=== PATIENT | female | born 1960 | race Caucasian/White ===

== ENCOUNTER → 2018-01-11 13:09 | Outpatient (CLI) | payer OTHER, SELFPAY ==
--- NOTE | 2018-01-11 | DI.MG.S_ITS ---
BILATERAL DIGITAL SCREENING MAMMOGRAM 3D/2D WITH CAD: 01/11/2018 CLINICAL: Routine screening. Family history of breast cancer. Comparison is made to exams dated: 01/08/2017 mammogram, 01/08/2016 mammogram - [facility], and 12/18/2014 mammogram - [facility]. The tissue of both breasts is heterogeneously dense. This may lower the sensitivity of mammography. Current study was also evaluated with a Computer Aided Detection (CAD) system. There are benign calcifications in the left breast. There also is a biopsy clip in the left breast. No significant masses, calcifications, or other findings are seen in either breast. There has been no significant interval change. IMPRESSION: BENIGN There is no mammographic evidence of malignancy. A 1 year screening mammogram is recommended. This exam was interpreted at Station ID: [id number]. NOTE: For mammograms, a report in lay terms will be sent to the patient. Approximately 15% of breast malignancies will not be visualized mammographically. In the management of a palpable breast mass, a negative mammogram must not discourage biopsy of a clinically suspicious lesion. Electronically Signed By: Steve mills/jori:01/11/2018 14:51:03 letter sent: Normal Exam ACR BI-RADS Category 2: Benign Finding(s) 3342F
== END ==
PROVIDERS: PCP Physician Assistant; Visit Provider Physician Assistant
DX: Z12.31 Encounter for screening mammogram for malignant neoplasm of breast (principal); Z80.3 Family history of malignant neoplasm of breast
CPT/HCPCS: 77063; 77067

== ENCOUNTER → 2019-01-13 15:11 | Outpatient (CLI) | payer OTHER, SELFPAY ==
--- NOTE | 2019-01-13 | DI.MG.S_ITS ---
BILATERAL DIGITAL SCREENING MAMMOGRAM 3D/2D WITH CAD: 01/13/2019 CLINICAL: Routine screening. Family history of breast cancer. Comparison is made to exams dated: 01/11/2018 mammogram, 01/08/2017 mammogram, 01/08/2016 mammogram - [facility], and 12/19/2013 mammogram - [facility]. The tissue of both breasts is heterogeneously dense. This may lower the sensitivity of mammography. Current study was also evaluated with a Computer Aided Detection (CAD) system. There is a biopsy clip in the superior lateral left breast with adjacent calcifications that appear stable on multiple prior comparison exams dating back to 12/19/13. There are mole markers on the left breast. No significant masses, calcifications, or other findings are seen in either breast. There has been no significant interval change. IMPRESSION: There is no mammographic evidence of malignancy. A 1 year screening mammogram is recommended. This exam was interpreted at Station ID: [id number]. NOTE: For mammograms, a report in lay terms will be sent to the patient. Approximately 15% of breast malignancies will not be visualized mammographically. In the management of a palpable breast mass, a negative mammogram must not discourage biopsy of a clinically suspicious lesion. Electronically Signed By: Chin Reyez M.D. ecl/:01/14/2019 11:51:32 letter sent: Normal Exam ACR BI-RADS Category 2: Benign Finding(s) 3342F
== END ==
PROVIDERS: PCP Family Medicine; Visit Provider Family Medicine
DX: Z12.31 Encounter for screening mammogram for malignant neoplasm of breast (principal); Z80.3 Family history of malignant neoplasm of breast
CPT/HCPCS: 77063; 77067

== ENCOUNTER → 2020-01-18 16:03 | Outpatient (CLI) | payer OTHER, SELFPAY ==
--- NOTE | 2020-01-18 16:11 | DI.MG.S_ITS ---
Patient Name: ANASTACIA WHITLOCK date: 1960 Sex: F Attending Physician: Michelle Indications: Date: 01/18/2020 16:07 At the request of: BETTY BLAND Procedure: MM screening mammo BI BILATERAL DIGITAL SCREENING MAMMOGRAM 3D/2D WITH CAD: 01/18/2020 CLINICAL: Routine screening. Family history of breast cancer. Comparison is made to exams dated: 01/13/2019 mammogram, 01/11/2018 mammogram, and 01/08/2017 mammogram - [facility]. The tissue of both breasts is heterogeneously dense. This may lower the sensitivity of mammography. Current study was also evaluated with a Computer Aided Detection (CAD) system. There is a benign calcification in both breasts. There also is a biopsy clip in the left breast. No significant masses, calcifications, or other findings are seen in either breast. There has been no significant interval change. IMPRESSION: BENIGN There is no mammographic evidence of malignancy. A 1 year screening mammogram is recommended. This exam was interpreted at Station ID: [id number]. NOTE: For mammograms, a report in lay terms will be sent to the patient. Approximately 15% of breast malignancies will not be visualized mammographically. In the management of a palpable breast mass, a negative mammogram must not discourage biopsy of a clinically suspicious lesion. Electronically Signed By: Antonette farmer/jori:01/18/2020 16:47:24 letter sent: Normal Exam ACR BI-RADS Category 2: Benign Finding(s) 3342F
== END ==
PROVIDERS: PCP Family Medicine; Referring Provider Family Medicine; Visit Provider Family Medicine
DX: Z12.31 Encounter for screening mammogram for malignant neoplasm of breast (principal); Z80.3 Family history of malignant neoplasm of breast
CPT/HCPCS: 77063; 77067

== ENCOUNTER 2020-11-25 06:07 | Emergency (ER) | payer OTHER, SELFPAY ==
[2020-11-25] VITALS (9 sets, daily range): BP systolic 164–198; BP diastolic 73–88; PULSE 59–73; RESP 14–42; TEMP 36.7; O2SAT 99–100; BMI 23.0
--- NOTE | 2020-11-25 06:09 | DI.RAD.S_ITS ---
PROCEDURE: XR CHEST 1V INDICATIONS: Chest pain TECHNIQUE: One view of the chest was acquired. COMPARISON: None. FINDINGS: Surgical changes and devices: None. Lungs and pleura: Lungs are clear. No pleural effusions or pneumothorax. Mediastinum: Mediastinal contours appear normal. Heart size is normal. Bones and chest wall: No suspicious bony lesions. Age-appropriate bony degenerative changes are seen. Overlying soft tissues appear unremarkable. IMPRESSION: Normal portable chest. Note: No significant discrepancy from the preliminary report. Dictated by: Tao Herrera M.D. on 11/25/2020 at 6:29 Approved by: Tao Herrera M.D. on 11/25/2020 at 6:30
--- NOTE | 2020-11-25 06:14 | ED_ITS ---
HPI - General Adult General Chief complaint: Chest Pain Stated complaint: Chest pain Time Seen by Provider: 11/25/20 06:08 History of Present Illness HPI narrative: Patient is a 60-year-old female here for evaluation of left-sided chest discomfort. She states that the symptoms started yesterday and have been off and on since then. And not worse with palpation but does get worse when she moves and when she takes a deep breath. She has had pain similar to this in the past and was told that it was a muscle strain. No coughing. No belly pain. No fevers. Has not tried anything for the symptoms prior to arrival. She has had a history of a cardiac ablation secondary to a fast heart rate. Related Data Previous Rx's Medication Instructions Recorded [estriol/progest] 1 supp VAGINAL QDAY #90 supp 08/05/17 Review of Systems Constitutional Constitutional: Reports system reviewed and no additional complaints, except as documented ENT Ears, Nose, Mouth, and Throat: Reports system reviewed and no additional complaints, except as documented Cardiovascular Cardiovascular: Reports chest pain Respiratory Respiratory: Reports system reviewed and no additional complaints, except as documented Gastrointestinal Gastrointestinal: Denies abdominal pain Musculoskeletal Musculoskeletal: Reports system reviewed and no additional complaints, except as documented Integumentary/Breasts Skin/Breast: Reports system reviewed and no additional complaints, except as documented Hematologic/Lymphatic On Anticoagulants: No Patient History Medical History Tachycardia Surgical History (Updated 09/15/17 @ 06:10 by Conversion Provider) Status post myomectomy Family History Father Age: 88 High cholesterol Mother Age: 86 Hypertension High cholesterol Social History Smoking Status: Never smoker Exam Initial Vital Signs Initial Vital Signs: Vital Signs Blood Pressure 198/88 H 11/25/20 06:13 Const General: cooperative, healthy appearing and comfortable HENMT Head: normal to inspection and normocephalic Chest Chest: No crepitus and No tenderness Resp Effort & Inspection: normal respiratory effort Auscultation: clear to auscultation bilaterally Cardio Rate: regular rate Rhythm: regular rhythm GI Inspection: normal to inspection Palpation: soft Skin General: no rashes or lesions noted Neuro General: patient alert, patient awake and patient oriented x3 Extrem General: normal to inspection Psych Appearance: grossly normal and well kempt Course Orders Ordered: ED Orders 11/25/20 06:09 XR chest 1V Stat Complete Blood Count AUTO DIFF Stat Comprehensive Metabolic Panel Stat Lipase Stat Troponin & CK Cardiac Panel Stat EKG-12 Lead Stat Vital Signs Vital signs: Vital Signs - 8 hr 11/25/20 06:13 11/25/20 06:14 11/25/20 06:15 Temperature 98.1 F Pulse Rate 71 73 Respiratory Rate 26 H 15 Blood Pressure 198/88 H 198/88 H Pulse Oximetry 100 100 11/25/20 06:30 Temperature Pulse Rate 66 Respiratory Rate 42 H Blood Pressure Pulse Oximetry 100 Medical Decision Making Lab Data Lab results reviewed: Yes I reviewed the patient's lab results. Result diagrams: 11/25/20 06:35 11/25/20 06:35 Labs: Lab Results 11/25/20 11/25/20 Range/Units 06:35 06:35 WBC 4.5 (4.5-11.0) X10^3/uL RBC 4.34 (4.0-5.2) X10^6/uL Hgb 13.4 (12.0-16.0) g/dL Hct 40.2 (36-46) % MCV 92.5 (80-100) fL MCH 30.9 (26-34) PG MCHC 33.4 (30-36) % RDW 13.0 (11.6-14.8) % Plt Count 167 (150-400) X10^3/uL Neut % (Auto) 59.1 (50-75) % Lymph % (Auto) 29.3 (25-40) % [place] % (Auto) 8.5 (3-14) % Eos % (Auto) 2.5 (2-4) % Baso % (Auto) 0.6 (0-2) % Neut # (Auto) 2700 (1752-7664) /uL Lymph # (Auto) 1300 (4981-1522) /uL [place] # (Auto) 400 (0-900) /uL Eos # (Auto) 100 (0-450) /uL Baso # (Auto) 0 (0-100) /uL Sodium 140 (137-145) mmol/L Potassium 3.5 (3.4-5.1) mmol/L Chloride 105 (98-107) mmol/L Carbon Dioxide 28 (22-32) mmol/L BUN 17 (7-17) mg/dL Creatinine 0.78 (0.52-1.04) mg/dL Estimated GFR > 60.0 (>60) mL/min BUN/Creatinine Ratio 21.8 (6-22) Glucose 106 (80-110) mg/dL Calcium 9.6 (8.4-10.2) mg/dL Total Bilirubin 1.5 H (0.2-1.3) mg/dL AST 33 (14-36) IU/L ALT 30 (<35) IU/L Alkaline Phosphatase 82 (38-126) U/L Total Creatine Kinase 118 (30-135) U/L Total Protein 7.3 (6.3-8.2) g/dL Albumin 4.2 (3.5-5.0) g/dL Globulin 3.1 (1.7-4.1) g/dL Albumin/Globulin Ratio 1.4 (1.0-2.8) Lipase 111 (23-300) U/L Imaging Data Chest x-ray: Radiologist's Impression: No acute findings ECG Data Attestation: I personally reviewed and interpreted this ECG as follows: Interpretation: Sinus rhythm Ventricular rate is 66 Normal axis Normal QRS Normal QTC No ST T wave changes MDM Narrative Medical decision making narrative: Care turned over to Dr Santiago to follow up and dispo. Discharge Plan Departure Prescriptions: No Action [estriol/progest] 1 supp Vaginal QDAY Qty: 90 RF: 0 Referrals: Austin Martinez MD [Primary Care Provider] -
[2020-11-25 06:40] LABS: Add Manual Diff / Slide Review NO; Basophils Absolute Auto 0 /uL (0-100); Basophils Percent Auto 0.6 % (0-2); Eosinophils Absolute Auto 100 /uL (0-450); Eosinophils Percent Auto 2.5 % (2-4); Hematocrit 40.2 % (36-46); Hemoglobin 13.4 g/dL (12.0-16.0); Lymphocytes Absolute Auto 1300 /uL (1100-4500); Lymphocytes Percent Auto 29.3 % (25-40); Mean Corpuscular HGB Conc 33.4 % (30-36); Mean Corpuscular Hemoglobin 30.9 PG (26-34); Mean Corpuscular Volume 92.5 fL (80-100); Monocytes Absolute Auto 400 /uL (0-900); Monocytes Percent Auto 8.5 % (3-14); Neutrophils Absolute Auto 2700 /uL (1500-7000); Neutrophils Percent Auto 59.1 % (50-75); Platelet Count 167 X10^3/uL (150-400); Red Blood Cell Count 4.34 X10^6/uL (4.0-5.2); White Blood Cell Count 4.5 X10^3/uL (4.5-11.0)
[2020-11-25 06:52] LABS: Alanine Aminotransferase 30 IU/L (<35); Albumin 4.2 g/dL (3.5-5.0); Albumin Globulin Ratio 1.4 (1.0-2.8); Alkaline Phosphatase 82 U/L (38-126); Aspartate Aminotransferase 33 IU/L (14-36); BUN Creatinine Ratio 21.8 (6-22); Bilirubin Total 1.5 mg/dL (0.2-1.3); Blood Urea Nitrogen 17 mg/dL (7-17); Calcium 9.6 mg/dL (8.4-10.2); Carbon Dioxide 28 mmol/L (22-32); Chloride 105 mmol/L (98-107); Creatine Kinase 118 U/L (30-135); Estimated Glomerular Filt Rate > 60.0 mL/min (>60); Globulin 3.1 g/dL (1.7-4.1); Glucose 106 mg/dL (80-110); HEMOLYSIS < 15 (0-50); Lipase 111 U/L (23-300); Potassium 3.5 mmol/L (3.4-5.1); Sodium 140 mmol/L (137-145); Total Protein 7.3 g/dL (6.3-8.2)
[2020-11-25 07:04] LABS: Troponin I < 0.012 ng/mL (0.01-0.034)
[2020-11-25 07:07] LABS: CKMB % Relative Index 1.6 % (1.5-5.0); Creatine Kinase MB 1.87 ng/mL (<2.37)
[2020-11-25] MEDS: KETOROLAC 30 MG/ML VIAL 15 MG IV (07:59)
== END 2020-11-25 08:33 | disposition home or self-care (01) ==
PROVIDERS: Emergency Medicine; Emergency Provider Emergency Medicine; PCP Family Medicine
DX: M94.0 Chondrocostal junction syndrome [Tietze] (principal); R07.9 Chest pain, unspecified
CPT/HCPCS: 36415; 71045; 80053; 82550; 82553; 83690; 84484; 85025; 93005; 93010; 96374; 99284; J1885

== ENCOUNTER → 2021-01-30 09:34 | Outpatient (CLI) | payer OTHER, SELFPAY ==
[2021-01-30 12:09] LABS: COVID19 -Nasal RAPID Negative (Negative)
== END ==
PROVIDERS: PCP Family Medicine; Visit Provider Nurse Practitioner Family
DX: Z20.822 Contact with and (suspected) exposure to COVID-19 (principal)
CPT/HCPCS: 87635

== ENCOUNTER 2021-02-01 12:21 | Day surgery (SDC) | payer OTHER, SELFPAY ==
--- NOTE | 2021-02-01 11:55 | PM.HP.1 ---
History of Present Illness History of Present Illness Date Patient Seen: 02/01/21 Chief complaint: SCREENING COLONOSCOPY Narrative: 60 Years Old Female seen today for consideration of a screening colonoscopy. She had 2 lifetime colonoscopies, records unavailable time of dictation, last in 2014, reportedly normal. There have been no lower GI symptoms suggesting disease such as change in bowel habits, bleeding, abdominal pain or anemia. Her maternal grandfather had colon cancer. Overall health issues have been stable, including no major cardiac events for at least 6 weeks. Past Medical History: Bladder infections Pneumonia BLOOD PRESSURE ELEVATION, W/O DX OF HYPERTENSION HYPERLIPIDEMIA Vitamin B12 deficiency VITAMIN D DEFICIENCY Decreased hearing, bilateral Hx of SVT Shoulder joint pain, left lipooma Past Surgical History: Myomectomy fibroid removal 1993 Right shoulder bone spur 2010 Catherter ablation 2011 Colonoscopy x 2 Rotator cuff, left shoulder Family History: Father: Hyperlipidemia, Macular Degenration Mother: Hyperlipidemia, Hypertension, Deafness? 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 Patient History Medical History Tachycardia Surgical History (Updated 09/15/17 @ 06:10 by Conversion Provider) Status post myomectomy Family & Social History Family History Father Age: 88 High cholesterol Mother Age: 86 Hypertension High cholesterol Tobacco & Substance use: Smoking Status Never smoker Substance Use Type does not use Meds Home Medications and Allergies Allergies Allergy/AdvReac Type Severity Reaction Status Date / Time No Known Drug Allergies Allergy Verified 02/01/21 13:10 Review of Systems Review of Systems Narrative: See HPI. Exam Narrative Exam Narrative: General: well developed, well nourished, in no acute distress, Head: normocephalic and atraumatic, Lungs: normal respiratory effort, clear bilaterally to auscultation, Heart: normal rate and regular rhythm, no murmurs, rubs, gallops, or clicks, Abdomen: abdomen soft and non-tender without masses, organomegaly, or abdominal wall hernias, bowel sounds positive. Skin: intact without suspicious lesions or rashes, Psych: alert and cooperative; normal mood and affect; normal attention span and concentration; cognition, remote and recent memory appear to be intact, Assessment & Plan Assessment & Plan narrative: 1. Family history of colon cancer 2. Screening for of colon cancer Plan for colonoscopy. The nature and character of the procedure as well as anticipated results were discussed. The possibility of not completing the procedure was also discussed. Possible complications including aspiration pneumonia, bleeding, perforation and reaction to medications either for sedation or preparation and missed lesions were discussed. Questions were answered and proceeding to the colonoscopy was elected. Informed consent signed. I sincerely appreciate the referral allowing me to participate in this patient's care. Please contact me with any questions or concerns.
--- NOTE | 2021-02-01 11:56 | PM.OP.ENDO ---
Operative Date/Time/Diagnoses Date of procedure: 02/01/21 Procedure Notes SCOAP/Timeout: 1:47 p.m. Procedure in detail: ENDOSCOPIST: Khushbu García MD Sedation RN: Winter Hollins RN Sedation start time: 1:49 p.m. Sedation end time: 2:13 p.m. PROCEDURE: Colonoscopy INDICATIONS: 1. Family history of colon cancer 2. Screening for colon cancer MEDICATION: Levsin 0.125 mg sublingual, incremental doses of Versed and fentanyl until appropriate level sedation achieved. ASA CLASS: 2 CECAL WITHDRAWAL TIME: 6 minutes COMPLICATIONS: None. EXTENT OF PROCEDURE: Cecum. QUALITY OF PREP: Good with portions of liquid stool. PROCEDURE: Prior to insertion of the colonoscope, a digital rectal examination was accomplished with circumferential palpation of the distal rectal mucosa without significant findings being noted. The high-definition pediatric colonoscope was passed into the rectum in the usual fashion and advanced over to the cecum without difficulty. The ileocecal valve, appendiceal stoma, and medial wall all could be inspected and no abnormalities were seen. ASCENDING COLON: As the colonoscope was withdrawn, care was taken to expose and inspect the haustral folds and no abnormalities were seen. HEPATIC FLEXURE: Normal, no polyps, diverticula or other abnormalities. TRANSVERSE COLON: Normal, no polyps, diverticula or other abnormalities. DESCENDING COLON: Normal, no polyps, diverticula or other abnormalities. SIGMOID COLON: Minor diverticulosis, otherwise, normal, no polyps or other abnormalities. RECTUM: Normal. J maneuver was produced. There was no significant perianal disease. The J maneuver was broken. The remainder of the rectum was inspected and there was no external hemorrhoid disease. The scope was withdrawn. IMPRESSION: 1. Normal colonoscopy 2. Sigmoid diverticulosis PLAN: 1. Repeat colonoscopy in 5 years secondary to family history. The possibility of a missed lesion including a malignancy has been discussed with the patient previously. Potential alarm symptoms have been discussed and should be reported immediately.
[2021-02-01] MEDS: LACTATED RINGERS 1,000 ML 200 ML IV (13:09)
[2021-02-01] MEDS: HYOSCYAMINE 0.125 MG TABLET PO (13:09)
[2021-02-01 13:12] VITALS: BP 145/83; PULSE 71; RESP 16; TEMP 36.9; O2SAT 100; BMI 22.7
[2021-02-01] MEDS: ONDANSETRON 4 MG/2 ML INJ IV (13:49)
[2021-02-01] MEDS: MIDAZOLAM 5 MG/5 ML VIAL IV (14:04)
[2021-02-01] MEDS: fentaNYL 250 MCG/5 ML INJ IV (14:04)
[2021-02-01 14:22] VITALS: BP 130/60; PULSE 58; RESP 13; TEMP 36.8; O2SAT 96
[2021-02-01 14:25] VITALS: BP 122/63; PULSE 58; RESP 25; O2SAT 100
[2021-02-01 14:39] VITALS: BP 130/64; PULSE 61; RESP 13; TEMP 36.6; O2SAT 100
--- NOTE | 2021-02-01 14:55 | SUR.PHASEII ---
Pt ready to go, belly soft, tolerated fluids. Left when ready left in stable condition.
== END 2021-02-01 14:46 | disposition home or self-care (01) ==
PROVIDERS: PCP Family Medicine; Referring Provider Student in an Organized Health Care Education/Training Program; Visit Provider Student in an Organized Health Care Education/Training Program
PROC: 0DJD8ZZ Inspection of Lower Intestinal Tract, Via Natural or Artificial Opening Endoscopic (ICD-10-PCS; CPT 45378; principal; 2021-02-01 13:45)
DX: Z12.11 Encounter for screening for malignant neoplasm of colon (principal); K57.30 Diverticulosis of large intestine without perforation or abscess without bleeding; Z80.0 Family history of malignant neoplasm of digestive organs; E78.5 Hyperlipidemia, unspecified; E53.8 Deficiency of other specified B group vitamins
CPT/HCPCS: G0105; J2250; J2405; J3010

== ENCOUNTER → 2021-02-07 10:13 | Outpatient (CLI) | payer OTHER, SELFPAY ==
--- NOTE | 2021-02-07 | DI.MG.S_ITS ---
BILATERAL DIGITAL SCREENING MAMMOGRAM 3D/2D WITH CAD: 02/07/2021 CLINICAL: Routine screening. Family history of breast cancer. Comparison is made to exams dated: 01/18/2020 mammogram, 01/13/2019 mammogram, and 01/11/2018 mammogram - [facility]. The tissue of both breasts is heterogeneously dense. This may lower the sensitivity of mammography. Current study was also evaluated with a Computer Aided Detection (CAD) system. There is a possible new 0.6 cm oval equal density asymmetry in the right breast posterior depth superior region seen on the mediolateral oblique view only. No other significant masses, calcifications, or other findings are seen in either breast. IMPRESSION: INCOMPLETE: NEEDS ADDITIONAL IMAGING EVALUATION The possible new 0.6 cm oval equal density asymmetry in the right breast is indeterminate. Additional views with possible ultrasound are recommended. This exam was interpreted at Station ID: Unknown. NOTE: For mammograms, a report in lay terms will be sent to the patient. Approximately 15% of breast malignancies will not be visualized mammographically. In the management of a palpable breast mass, a negative mammogram must not discourage biopsy of a clinically suspicious lesion. Electronically Signed By: Endy julian/jori:02/07/2021 12:41:44 Entry: - 02/08/2021 09:20:56 letter sent: Additional Imaging Needed ACR BI-RADS Category 0: Incomplete 3340F
== END ==
PROVIDERS: PCP Family Medicine; Referring Provider Family Medicine; Visit Provider Family Medicine
DX: Z12.31 Encounter for screening mammogram for malignant neoplasm of breast (principal)
CPT/HCPCS: 77063; 77067

== ENCOUNTER → 2021-03-04 12:27 | Outpatient (CLI) | payer OTHER, SELFPAY ==
--- NOTE | 2021-03-04 | DI.MG.S_ITS ---
UNILATERAL RIGHT DIGITAL DIAGNOSTIC MAMMOGRAM 3D/2D WITH ADDITIONAL VIEWS: 03/04/2021 CLINICAL: Additional evaluation requested from prior study. Comparison is made to exams dated: 02/07/2021 mammogram, 01/18/2020 mammogram, 01/13/2019 mammogram, 01/11/2018 mammogram, and 01/08/2017 mammogram - [facility]. The tissue of right breast is heterogeneously dense. This may lower the sensitivity of mammography. There is a possible asymmetry in the right breast posterior depth superior region seen on the mediolateral oblique view only. This does not persist on additional views. No other significant masses or calcifications are seen in the breast. IMPRESSION: BENIGN There is no mammographic evidence of malignancy. The possible asymmetry in the right breast is consistent with fibroglandular tissue and is benign. A 1 year screening mammogram is recommended. Exam findings were conveyed to the patient. This exam was interpreted at Station ID: [id number]. NOTE: For mammograms, a report in lay terms will be sent to the patient. Approximately 15% of breast malignancies will not be visualized mammographically. In the management of a palpable breast mass, a negative mammogram must not discourage biopsy of a clinically suspicious lesion. Electronically Signed By: Dmitriy Strong M.D. slc/:03/04/2021 13:16:14 letter sent: Normal Exam ACR BI-RADS Category 2: Benign Finding(s) 3342F
== END ==
PROVIDERS: PCP Family Medicine; Referring Provider Family Medicine; Visit Provider Family Medicine
DX: R92.8 Other abnormal and inconclusive findings on diagnostic imaging of breast (principal)
CPT/HCPCS: 77065; G0279

== ENCOUNTER → 2022-01-13 11:11 | Outpatient (CLI) | payer OTHER, SELFPAY ==
--- NOTE | 2022-01-13 | DI.RAD.S_ITS ---
PROCEDURE: FL SHOULDER INJECTION MR/CT LT INDICATIONS: LEFT SHOULDER PAIN COMPARISON: [facility], MR, MR SHOULDER LT W CON, 01/13/2022, 11:52. TECHNIQUE: The indications, alternatives, benefits, risks, and complications of the procedure were explained to the patient. Written informed consent was obtained and placed in the chart. The shoulder was examined fluoroscopically and a site for needle placement chosen for entry into the glenohumeral joint from an anterior approach. The skin was prepped and draped in a sterile fashion, and 1% lidocaine infiltrated from skin down to joint capsule. A spinal needle was inserted into the glenohumeral joint, and a small amount of iodinated contrast media injected to confirm intra-articular placement of the needle tip. This was followed by approximately 12 mL dilute solution of a gadolinium containing MR contrast agent. The needle was removed and a dressing was applied. The patient was given postprocedural instructions and sent to the MR suite for MR imaging. FINDINGS: A single fluoroscopic spot image demonstrates intra-articular location of injected iodinated contrast. IMPRESSION: Successful fluoroscopically guided administration of dilute Gadolinium solution into the shoulder joint for MR arthrogram. Dictated by: Cody Tineo M.D. on 01/13/2022 at 12:39 Approved by: Cody Tineo M.D. on 01/13/2022 at 12:40
--- NOTE | 2022-01-13 | DI.MRI.S_ITS ---
PROCEDURE: MR SHOULDER LT W CON INDICATIONS: LEFT SHOULDER PAIN TECHNIQUE: After the administration of 12 mL of dilute intra-articular Gadolinium contrast, oblique coronal T1 and T2 spin echo with fat saturation, oblique sagittal T1 spin echo with and without fat saturation, oblique sagittal T2 fast spin echo with fat saturation, axial T1 spin echo with fat saturation through the shoulder. COMPARISON: [facility], CR, XR SHOULDER 2+ VIEWS LEFT, 12/06/2021, 11:07. FINDINGS: Image quality: Excellent. Rotator cuff: There is mild T2 signal elevation at the is humeral insertion sites of the mid and anterior supraspinatus tendon, extending to the musculotendinous junction. Low-grade partial-thickness intrasubstance tearing of the anterior infraspinatus tendon at the humeral insertion site. Subscapularis, infraspinatus, and teres minor tendons are intact. Bones and bursae: No bone marrow contusions or fractures. Postsurgical widening of the acromioclavicular interval. No acromioclavicular joint degeneration. The acromion demonstrates conventional anatomy, without an os acromiale. Capsule and soft tissues: There is diffuse degenerative fraying of the glenoid labrum. There is undercutting of the anteroinferior labrum. There is an intra-articular loose body dependently within the glenohumeral joint measuring roughly 7 mm diameter. The long head of the biceps tendon demonstrates normal location and morphology as visualized. Biceps anchor is not well seen.. The rotator interval appears normal, without fibrosis. The coracohumeral ligament is of normal thickness. No intra-articular bodies. IMPRESSION: 1. Glenoid labral tearing. 2. Supraspinatus tendinopathy with superimposed low-grade partial-thickness tear. No full-thickness rotator cuff tear. 3. Intra-articular loose body. 4. Postsurgical sequelae. 5. Nonvisualization of the biceps anchor, possibly indicating tearing. Dictated by: Billie Israel M.D. on 01/13/2022 at 13:41 Transcribed by: ILEANA on 01/13/2022 at 13:44 Approved by: Billie Israel M.D. on 01/13/2022 at 15:35
== END ==
PROVIDERS: PCP Family Medicine; Referring Provider Orthopaedic Surgery; Visit Provider Orthopaedic Surgery
DX: S43.432A Superior glenoid labrum lesion of left shoulder, initial encounter (principal); M75.102 Unspecified rotator cuff tear or rupture of left shoulder, not specified as traumatic; M24.012 Loose body in left shoulder
CPT/HCPCS: 23350; 73222

== ENCOUNTER → 2022-02-27 15:45 | Outpatient (CLI) | payer OTHER, SELFPAY ==
--- NOTE | 2022-02-27 15:46 | DI.MG.S_ITS ---
BILATERAL DIGITAL SCREENING MAMMOGRAM 3D/2D WITH CAD: 02/27/2022 CLINICAL: Routine screening. Family history of breast cancer. Comparison is made to exams dated: 02/07/2021 mammogram, 01/18/2020 mammogram, and 01/13/2019 mammogram - [facility]. Both breasts are heterogeneously dense, which may obscure small masses (category c / 51-75% glandular tissue). Current study was also evaluated with a Computer Aided Detection (CAD) system. There are benign calcifications in the left breast. There also is a biopsy clip in the left breast. No significant masses, calcifications, or other findings are seen in either breast. There has been no significant interval change. IMPRESSION: BENIGN There is no mammographic evidence of malignancy. A 1 year screening mammogram is recommended. Based on the Tyrer Cuzick model (a risk assessment model) the patient's lifetime risk is 11.9% and her 10 year risk is 5.6%. According to the ACR, ACS, and NCCN guidelines, an annual breast MRI exam along with mammogram is recommended if the patient's lifetime risk is 20% or greater. This exam was interpreted at Station ID: [id number]. NOTE: For mammograms, a report in lay terms will be sent to the patient. Approximately 15% of breast malignancies will not be visualized mammographically. In the management of a palpable breast mass, a negative mammogram must not discourage biopsy of a clinically suspicious lesion. Electronically Signed By: Marija campa/jori:02/28/2022 11:07:57 letter sent: Normal Exam ACR BI-RADS Category 2: Benign Finding(s) 3342F
== END ==
PROVIDERS: PCP Family Medicine; Referring Provider Family Medicine; Visit Provider Family Medicine
DX: Z12.31 Encounter for screening mammogram for malignant neoplasm of breast (principal); Z80.3 Family history of malignant neoplasm of breast
CPT/HCPCS: 77063; 77067

== ENCOUNTER → 2023-03-04 14:12 | Outpatient (CLI) | payer OTHER, SELFPAY ==
--- NOTE | 2023-03-04 | DI.MG.S_ITS ---
BILATERAL DIGITAL SCREENING MAMMOGRAM 3D/2D WITH CAD: 03/04/2023 CLINICAL: Routine screening. Family history of breast cancer. Comparison is made to exams dated: 02/27/2022 mammogram, 02/07/2021 mammogram, and 01/18/2020 mammogram - [facility]. Both breasts are heterogeneously dense, which may obscure small masses (category c / 51-75% glandular tissue). Current study was also evaluated with a Computer Aided Detection (CAD) system. There are benign post operative findings in the right breast. There also is a biopsy clip in the left breast. No significant masses, calcifications, or other findings are seen in either breast. IMPRESSION: BENIGN There is no mammographic evidence of malignancy. A 1 year screening mammogram is recommended. Based on the Tyrer Cuzick model (a risk assessment model) the patient's lifetime risk is 11.4% and her 10 year risk is 5.6%. According to the ACR, ACS, and NCCN guidelines, an annual breast MRI exam along with mammogram is recommended if the patient's lifetime risk is 20% or greater. This exam was interpreted at Station ID: [id number]. NOTE: For mammograms, a report in lay terms will be sent to the patient. Approximately 15% of breast malignancies will not be visualized mammographically. In the management of a palpable breast mass, a negative mammogram must not discourage biopsy of a clinically suspicious lesion. Electronically Signed By: Maribel clarke/jori:03/04/2023 23:48:29 letter sent: Normal Exam ACR BI-RADS Category 2: Benign Finding(s) [id number]
== END ==
PROVIDERS: PCP Family Medicine; Referring Provider Family Medicine; Visit Provider Family Medicine
DX: Z12.31 Encounter for screening mammogram for malignant neoplasm of breast (principal); Z80.3 Family history of malignant neoplasm of breast
CPT/HCPCS: 77063; 77067

== ENCOUNTER → 2023-04-13 11:00 | Outpatient (CLI) | payer OTHER, SELFPAY ==
--- NOTE | 2023-04-13 | DI.RAD.S_ITS ---
Bone Density Report Name: ANASTACIA WHITLOCK Age: 63 Sex: Female Ethnicity: White Date of : 1960 Indication: postmenopausal; screening for osteoporosis; Referring Provider: BETTY BLAND Study: Bone densitometry was performed. Exam Date: April 13, 2023 Accession number: [id number] Bone Density: Region BMD T-score Z-score Classification AP Spine(L1-L4) 0.860 -1.7 0.1 Osteopenia Femoral Neck (Left) 0.609 -2.2 -0.6 Osteopenia Total Hip (Left) 0.689 -2.1 -0.8 Osteopenia Femoral Neck (Right) 0.667 -1.6 -0.1 Osteopenia Total Hip (Right) 0.763 -1.5 -0.2 Osteopenia Total Hip Mean 0.726 -1.8 -0.5 Osteopenia World Health Organization criteria for BMD impression classify patients as: Normal (T-score at or above -1.0), Osteopenia (T-score between -1.0 and -2.5), or Osteoporosis (T-score at or below -2.5). 10-year Fracture Risk(1): Major Osteoporotic Fracture 11% Hip Fracture 1.8% Reported Risk Factors: [place] (), Neck BMD=0.609, BMI=22.7 (1) FRAX(R) Version 3.08. Fracture probability calculated for an untreated patient. Fracture probability may be lower if the patient has received treatment. Impression: The patient has low bone mass, based on the Left Femoral Neck T-score. The patient has an estimated ten-year risk of hip fracture of 1.8% and an estimated ten-year risk of major fracture of 11%, based on the WHO FRAX algorithm. Discussion: BONE DENSITY IS LOW AT ONE OR MORE SKELETAL SITES. This patient's lowest T-score is low at one or more skeletal sites. It meets the World Health Organization's (WHO) criteria for low bone mass (T-score between -1.0 and -2.5). The patient's 10-year risk of fracture as calculated by FRAX is less than the threshold where pharmacological therapy is recommended by the National Osteoporosis Foundation (NOF). However, all treatment decisions require clinical judgment and consideration of individual patient factors, including patient preferences, comorbidities, previous drug use, risk factors not captured in the FRAX model (e.g., frailty, falls, vitamin D deficiency, increased bone turnover, interval significant decline in bone density) and possible under or overestimation of fracture risk by FRAX. The patient should follow a healthful lifestyle (good nutrition with adequate calcium and vitamin D, and appropriate weight-bearing exercise). Follow-Up: Consider repeating this study in 2 to 3 years to reassess this patient's status, or sooner if there is some new clinical indication. Reported by: MILVIA CABRERA MD on 04/13/2023 11:26:00 AM.
== END ==
PROVIDERS: PCP Family Medicine; Referring Provider Family Medicine; Visit Provider Family Medicine
DX: M85.89 Other specified disorders of bone density and structure, multiple sites (principal)
CPT/HCPCS: 77080

== ENCOUNTER 2023-10-02 01:54 | Emergency (ER) | payer OTHER, SELFPAY ==
[2023-10-02 02:05] VITALS: BP 144/71; PULSE 65; RESP 16; TEMP 36.8; O2SAT 100; BMI 23.5
--- NOTE | 2023-10-02 02:09 | DI.RAD.S_ITS ---
PROCEDURE: XR FOOT RT MIN 3V INDICATIONS: Pain in right foot TECHNIQUE: 3 views of the foot were acquired. COMPARISON: None. FINDINGS: Bones: No acute fractures or dislocations. Moderate degenerative changes of the right 1st metatarsophalangeal joint. Marginal osteophytes. Moderate overlying soft tissue swelling. Subchondral lucencies noted at the head of the 1st metatarsal. Other visualized osseous structures appear intact. No suspicious bony lesions. Plantar calcaneal enthesophyte. Soft tissues: No tibiotalar joint effusion. Achilles tendon appears normal. IMPRESSION: Degenerative changes of the right 1st metatarsophalangeal joint with moderate overlying soft tissue swelling and possible erosions involving the head of the 1st metatarsal. Findings may represent an an inflammatory arthropathy. Gout may have a similar appearance. Additionally, recommend clinical correlation to exclude possible infectious symptoms. Dictated by: Endy Cisneros M.D. on 10/02/2023 at 9:34 Approved by: Endy Cisneros M.D. on 10/02/2023 at 9:36
[2023-10-02 03:04] VITALS: PULSE 81; O2SAT 99
[2023-10-02 03:05] VITALS: BP 161/72; PULSE 68; RESP 18; O2SAT 100
[2023-10-02 03:30] VITALS: PULSE 75; O2SAT 100
[2023-10-02 03:31] VITALS: BP 174/78; PULSE 72; RESP 18; O2SAT 100
--- NOTE | 2023-10-02 03:33 | DI.RAD.S_ITS ---
PROCEDURE: XR ANKLE RT MIN 3V INDICATIONS: right ankle pain TECHNIQUE: 3 views of the ankle were acquired. COMPARISON: None. FINDINGS: Bones: No fractures or dislocations. Ankle mortise is normally aligned. No suspicious bony lesions. Degenerative changes of the dorsal right midfoot at the talonavicular joint. Small plantar calcaneal enthesophyte. Soft tissues: No tibiotalar joint effusion. Achilles tendon appears normal. IMPRESSION: No acute bony abnormality or significant effusion. Plantar calcaneal enthesophyte. If there are persistent symptoms or clinical suspicion for pathology, then repeat radiographs or advanced imaging (CT or MRI) may be considered for further evaluation. Dictated by: Endy Cisneros M.D. on 10/02/2023 at 9:36 Approved by: Endy Cisneros M.D. on 10/02/2023 at 9:37
--- NOTE | 2023-10-02 03:35 | ED.EXTPRO ---
HPI - Extremity Problem General Chief complaint: Extremity Problem,Nontraumatic Stated complaint: rt ankle pain sore to touch can't bear weight Time Seen by Provider: 10/02/23 03:25 Source: patient Mode of arrival: Wheelchair History of Present Illness HPI Narrative: 63-year-old female awakened from sleep with right anterolateral foot and ankle pain proximally midnight 3 hours ago.. She could not recall any specific injury. She had not been having pain and it through the day. He does not recall any twist or blunt trauma. Pain is worse with any movement of her ankle and foot on the right-hand side. No other pain to her right toes, right foreleg, knees, thigh, hips. Denies back pain. She has not tried any medications thus far for the pain. MD Complaint: extremity pain Related Data Home Medications Medication Instructions Recorded Confirmed losartan 25 mg tablet 25 mg PO DAILY 04/30/22 06/25/22 Previous Rx's Medication Instructions Recorded ibuprofen 600 mg tablet 600 mg PO TID PRN pain #30 tabs 09/29/22 Allergies Allergy/AdvReac Type Severity Reaction Status Date / Time No Known Drug Allergies Allergy Verified 06/25/22 16:19 Patient History Medical History Hypertension Rotator cuff tear, left Tachycardia Surgical History Status post myomectomy Family History Father Age: 90 High cholesterol Mother Age: 88 Hypertension High cholesterol Social History household members: spouse Smoking Status: Never smoker Smoking Status: Never smoker alcohol intake frequency: holidays/special occasions only Substance Use Type: does not use Exam Narrative Exam Narrative: GENERAL: Well-developed patient, in mild distress. HEAD: Atraumatic. Normocephalic. EYES: Pupils equal round and reactive. Extraocular motions intact. No scleral icterus. No injection or drainage. ENT: Nose without bleeding, purulent drainage. Throat without erythema, tonsillar hypertrophy or exudate. Airway patent. NECK: Trachea midline. Non tender CARDIOVASCULAR: Regular rate and rhythm without murmurs, gallops, or rubs. RESPIRATORY: Clear to auscultation. Breath sounds equal bilaterally. No wheezes, rales, or rhonchi. GASTROINTESTINAL: Abdomen soft, non-tender, nondistended. EXTREMITIES: No gross swelling or deformity to the right foot or ankle. Some tenderness to the anterior distal fibula, extending down to the tip of the fibula, no posterior fibular tenderness. No gross swelling, no skin changes punctures redness lesions his skin noted. There is some tenderness to the adjacent superior anterior mid foot, just anterior and distal to the anterior fibula. No medial ankle joint line tenderness. Remainder of right lower extremity without tenderness or gross deformity, no tenderness or deformity to right upper extremity or left upper extremity, or unaffected left lower extremity. BACK: Nontender without deformity or crepitance. No flank tenderness. NEURO: AOx3. SKIN: No rash or erythema of visible areas Initial Vital Signs Initial Vital Signs: Vital Signs Temperature 98.3 F 10/02/23 02:05 Pulse Rate 65 10/02/23 02:05 Respiratory Rate 16 10/02/23 02:05 Blood Pressure 144/71 H 10/02/23 02:05 Pulse Oximetry 100 10/02/23 02:05 Oxygen Delivery Method Room Air 10/02/23 02:05 Course Orders Ordered: Discontinued Medications Ketorolac Tromethamine (Ketorolac 30 Mg/Ml Vial) 30 mg IM NOW ONE Stop: 10/02/23 03:35 Last Admin: 10/02/23 03:43 Dose: 30 mg Documented By: AB Vital Signs Vital signs: Vital Signs - 8 hr 10/02/23 02:05 10/02/23 03:04 10/02/23 03:05 Temperature 98.3 F Pulse Rate 65 81 Respiratory Rate 16 Blood Pressure 144/71 H 161/72 H Pulse Oximetry 100 99 Oxygen Delivery Method Room Air 10/02/23 03:05 Temperature Pulse Rate 68 Respiratory Rate 18 Blood Pressure Pulse Oximetry 100 Oxygen Delivery Method MDM - Extremity (Nontraumatic) Differential Diagnosis Discussed with:: DDx strain ankle/foot, less likely gout by location, doubt septic joint, other MDM Narrative Medical decision making narrative: Left lateral foot/ankle pain. X-rays left foot without definite fracture. Left x-ray series with possible anterior cortical lesion but it is in the area of radiographic overlap, could be artifact. We will splint patient with ortho boot, nonweightbearing with crutches for now. Recheck with regular provider in the next 2-3 days. Check symptoms and exam as well as x-ray report at that time. IM Toradol, pain improved for application of ortho boot. Take Tylenol and/or Motrin as needed for discomfort. Home with . Discharge Plan Departure Patient Disposition: Home Clinical Impression: Right ankle strain, Right foot strain, Strain of ankle and foot Activity Restrictions/Additional Instructions: Right lateral foot pain and ankle pain awakened from sleep, no specific injury or activity recalled. No skin changes to suggest bite or sting injury. The area of tenderness is near the front of the distal fibula on the right-hand side, as well as at the tip, and adjacent soft tissue anterior areas. X-rays without obvious gross fracture, on one view ankle there might be a cortical fracture but I favor this to be a likely artifact. Placed ortho boot support for the foot and ankle, no weight-bearing for now, use crutches. Recheck with your regular provider in the next 2-3 days, check symptoms and exam and report to see if there is any lingering suspicion for any fracture. Use Tylenol and/or Motrin as needed for discomfort. Return earlier to this/nearest emergency department for any change worsening of symptoms or any concerns prior Prescriptions: No Action ibuprofen 600 mg tablet 600 mg PO TID PRN (Reason: pain) Qty: 30 0RF losartan 25 mg tablet 25 mg PO DAILY Referrals: Austin Martinez MD [Primary Care Provider] - Stand Alone Forms: Patient Portal/API
[2023-10-02] MEDS: KETOROLAC 30 MG/ML VIAL IM (03:43)
[2023-10-02 04:00] VITALS: BP 155/74; PULSE 60; O2SAT 99
== END 2023-10-02 04:12 | disposition home or self-care (01) ==
PROVIDERS: Emergency Provider Emergency Medicine; PCP Family Medicine
DX: S96.911A Strain of unspecified muscle and tendon at ankle and foot level, right foot, initial encounter (principal); X58.XXXA Exposure to other specified factors, initial encounter; Y93.9 Activity, unspecified
CPT/HCPCS: 29515; 29580; 73610; 73630; 96372; 99283; J1885

== ENCOUNTER → 2024-03-26 11:05 | Outpatient (CLI) | payer OTHER, SELFPAY ==
--- NOTE | 2024-03-26 11:08 | DI.MG.S_ITS ---
BILATERAL DIGITAL SCREENING MAMMOGRAM 3D/2D WITH CAD: 03/26/2024 CLINICAL: Routine screening. Family history of breast cancer. Comparison is made to exams dated: 03/04/2023 mammogram, 02/27/2022 mammogram, and 02/07/2021 mammogram - [facility]. The breasts are heterogeneously dense, which may obscure small masses (category c / 51-75% glandular tissue). Current study was also evaluated with a Computer Aided Detection (CAD) system. There are benign post operative findings in the right breast. There also is a biopsy clip in the left breast. No significant masses, calcifications, or other findings are seen in either breast. There has been no significant interval change. IMPRESSION: BENIGN There is no mammographic evidence of malignancy. A 1 year screening mammogram is recommended. Based on the Tyrer Cuzick model (a risk assessment model) the patient's lifetime risk is 10.9% and her 10 year risk is 5.5%. According to the ACR, ACS, and NCCN guidelines, an annual breast MRI exam along with mammogram is recommended if the patient's lifetime risk is 20% or greater. This exam was interpreted at Station ID: [id number]. NOTE: For mammograms, a report in lay terms will be sent to the patient. Approximately 15% of breast malignancies will not be visualized mammographically. In the management of a palpable breast mass, a negative mammogram must not discourage biopsy of a clinically suspicious lesion. Electronically Signed By: Maribel Eugene M.D., Ph.D. pa/jori:03/28/2024 11:11:32 letter sent: Normal Exam ACR BI-RADS Category 2: Benign
== END ==
PROVIDERS: PCP Family Medicine; Referring Provider Family Medicine; Visit Provider Family Medicine
DX: Z12.31 Encounter for screening mammogram for malignant neoplasm of breast (principal); Z80.3 Family history of malignant neoplasm of breast; R92.333 Mammographic heterogeneous density, bilateral breasts
CPT/HCPCS: 77063; 77067

== ENCOUNTER → 2025-04-14 09:33 | Outpatient (CLI) | payer OTHER, SELFPAY ==
--- NOTE | 2025-04-14 09:35 | DI.MG.S_ITS ---
US breast LT limited, MM diagnostic mammo BI: 04/14/2025 BI-RADS: 4A CLINICAL: 65-year old female for bilateral diagnostic mammogram and left diagnostic breast ultrasound. Tyrer-Cuzick lifetime risk of 7.5%. No personal or first- degree family history of breast cancer. Current reported family history of breast cancer: maternal grandmother. The patient reports pain in the left breast. The patient had a prior right breast biopsy. PRIOR EXAMS 03/26/2024, 01/08/2023, 01/08/2022, 01/08/2021, 01/09/2020, 01/08/2019, 01/08/2018, 01/08/2017, 01/08/2016. MAMMOGRAPHY TECHNIQUE: 2D and 3D (tomosynthesis) digital mammographic views obtained, with additional images as needed for full coverage. Current study was also evaluated with a Computer Aided Detection (CAD) system. ULTRASOUND TECHNIQUE Real-time skaggs scale and color doppler imaging of the area of clinical interest was performed with image documentation. Left targeted breast ultrasound of the area of clinical interest and the axilla was performed with image documentation. DENSITY C. The breasts are heterogeneously dense, which may obscure small masses. MAMMOGRAPHY FINDINGS Right: No suspicious mass, asymmetry, microcalcification, or other abnormality seen. Left (finding-1): Upper Outer Quadrant, Middle depth: There is no suspicious mammographic finding to account for concern by the patient of pain/tenderness. No suspicious mass, asymmetry, microcalcification, or other abnormality seen. Left (finding-2): Outer Central, Middle depth, measuring 0.7cm: There is a developing focal asymmetry present. ULTRASOUND FINDINGS Left (finding-2): Lower Outer at 4:00, 9 cm from nipple, measuring 0.5 x 0.6 x 0.5 cm: Correlating with findings on mammogram there is a lymph node with concentric cortical thickening showing posterior acoustic enhancement. Doppler shows branching hilar vascularity. Left: Axilla: No suspicious sonographic finding with typically benign findings noted. No abnormal lymph nodes are seen in the axilla. Left (finding-1): Upper Outer at 12:30: The area from 12 to 1 o'clock, 7 to 8 cm from the nipple, was scanned. There is no sonographic abnormality to account for concern by the patient of pain/tenderness. IMPRESSION: Right * No evidence of malignancy. Left (Lymph Node): Lower Outer at 4:00, 9 cm from nipple, measuring 0.5 x 0.6 x 0.5 cm * Low Suspicion for Malignancy. RECOMMENDATIONS Left: Lower Outer at 4:00, 9 cm from nipple * Ultrasound-guided biopsy for further evaluation (Recommend correlation of the location of the biopsy marker to the focal asymmetry on the post-procedure mammogram). Left * Clinical follow-up is recommended, and further management of the patient's left breast pain should be based on the results of clinical evaluation. If a concerning symptom persists or progresses, further clinical evaluation should be considered. COMMENTS: Findings and recommendations were conveyed to the patient during today's evaluation by Dr. Rdz. OVERALL ASSESSMENT CATEGORY BI-RADS-4: Suspicious. PRELIMINARILY ELECTRONICALLY SIGNED: Coral Thacker M.D. on 04/14/2025 at 01:08:07 PM PT ELECTRONICALLY SIGNED: Coral Thacker M.D. on 04/14/2025 at 01:08:45 PM PT Interpreting Station ID: [id number]
== END ==
LOC: MAMMO 09:34
PROVIDERS: PCP Family Medicine; Referring Provider Family Medicine; Visit Provider Family Medicine
DX: N64.4 Mastodynia (principal); N64.89 Other specified disorders of breast; R92.333 Mammographic heterogeneous density, bilateral breasts; Z80.3 Family history of malignant neoplasm of breast
CPT/HCPCS: 76642; 77066; G0279

== ENCOUNTER → 2025-05-09 12:47 | Outpatient (ROUT) | payer SELFPAY ==
[2025-05-09 14:39] LABS: Hepatitis B Surface Antigen NEGATIVE s/c (NEGATIVE)
[2025-05-09 15:01] LABS: Hep C Virus Ab w/Reflex Quant NEGATIVE s/c (NEGATIVE)
== END ==
PROVIDERS: PCP Family Medicine; Visit Provider Family Medicine
DX: Z77.21 Contact with and (suspected) exposure to potentially hazardous body fluids (principal); W46.0XXA Contact with hypodermic needle, initial encounter
CPT/HCPCS: 36415; 86803; 87340; 87389

== ENCOUNTER → 2025-05-15 15:52 | Outpatient (CLI) | payer SELFPAY ==
[2025-05-16 15:54] LABS: Hepatitis B Surface Antigen NEGATIVE s/c (NEGATIVE)
== END ==
PROVIDERS: PCP Family Medicine; Referring Provider Family Medicine; Visit Provider Family Medicine
DX: Z77.21 Contact with and (suspected) exposure to potentially hazardous body fluids (principal); W46.0XXA Contact with hypodermic needle, initial encounter
CPT/HCPCS: 87340